=== PATIENT | male | born 1970 | race Caucasian/White ===

== ENCOUNTER 2018-04-15 01:46 | Inpatient (IN) | payer OTHER ==
[~2018-04-15] VITALS: Ht 180.3 cm; Wt 93.4 kg
[~2018-04-15 01:46] MED LIST: ACETAMINOPHEN500 MG PO; ALLEGRA PO; LISINOPRIL10 MG PO; LOSARTAN POTAS100 MG PO; MELOXICAM15 MG PO; NAPROXEN250 MG PO; PANTOPRAZOLE SO40 MG PO; PEPCID20 MG PO; POTASSIUM CITR500 GM PO; SUPHEDRIN 12-H120 MG PO; TYLENOL WITH C1 EACH PO; Z.0.FLOMAX0.4 MG PO; Z.0.LISINOPRIL10 MG PO; Z.0.NORCO 10-325 T1 PO
[2018-04-15] MEDS ORDERED: KETOROLAC TROMETHAMINE 30 MG/ML VIAL IV STA (02:08)
[2018-04-15 02:18] LABS: BASOPHILS % 0.6 % (0.0-1.0); EOSINOPHILS # (AUTO) 0.3 (0.0-0.4); EOSINOPHILS % 4.7 % (0.0-6.0); LYMPHOCYTES # (AUTO) 3.1 (1.0-3.2); LYMPHOCYTES % 49.3 % (18.0-39.1); MEAN CORPUSCULAR HEMOGLOBIN 33.4 pg (28-32); MEAN CORPUSCULAR HGB CONC 35.6 g/dL (31-35); MEAN CORPUSCULAR VOLUME 93.9 fL (81-99); MONOCYTES # (AUTO) 0.3 (0.2-0.8); MONOCYTES % 5.4 % (4.4-11.3); NEUTROPHILS # (AUTO) 2.5 (2.1-6.9); PLATELET COUNT 208 x10e3/uL (140-360); RED BLOOD COUNT 4.79 x10e6/uL (4.3-5.7); RED CELL DISTRIBUTION WIDTH 12.4 % (11.7-14.4)
[2018-04-15 02:23] LABS: BILIRUBIN,URINE NEGATIVE (NEGATIVE); CLARITY,URINE CLOUDY (CLEAR); COLOR,URINE AMBER (YELLOW); KETONES,URINE NEGATIVE (NEGATIVE); LEUKOCYTE ESTERASE ,URINE NEGATIVE (NEGATIVE); NITRITE,URINE NEGATIVE (NEGATIVE); PROTEIN,URINE DIPSTICK 1+ (NEGATIVE); URINE UROBILINOGEN 0.2 mg/dL (0.2 - 1)
[2018-04-15 02:25] LABS: EPITHELIAL CELLS,URINE FEW /LPF; RBC,URINE >50 /HPF (0-5); WBC,URINE (MAN) 0-5 /HPF (0-5)
[2018-04-15] MEDS ORDERED: ACYCLOVIR400 MG PO (02:30)
[2018-04-15 02:37] LABS: ALANINE AMINOTRANSFERASE 39 IU/L (0-55); ALBUMIN 4.4 g/dL (3.5-5.0); ALBUMIN/GLOBULIN RATIO 1.5 (0.8-2.0); ALKALINE PHOSPHATASE 54 IU/L (40-150); ANION GAP 11.9 mmol/L (8-16); BLOOD UREA NITROGEN 15 mg/dL (7-26); BUN/CREATININE RATIO 13 (6-25); CALCIUM 9.8 mg/dL (8.4-10.2); CARBON DIOXIDE 27 mmol/L (22-29); CHLORIDE 108 mmol/L (98-107); CREATININE, SERUM 1.17 mg/dL (0.72-1.25); EST GLOMERULAR FILTRATION RATE > 60 ML/MIN (60-); GLUCOSE 100 mg/dL (74-118); POTASSIUM 3.9 mmol/L (3.5-5.1); SODIUM 143 mmol/L (136-145)
[2018-04-15] MEDS ORDERED: HYDROMORPHONE 1MG/1ML INJ IV STA (02:48)
[2018-04-15] MEDS ORDERED: ONDANSETRON HCL INJ 2 MG/ML VIAL IV STA (02:48)
--- NOTE | 2018-04-15 02:56 | Diagnostic Imaging Report ---
EXAM: CT ABDOMEN/PELVIS WO DATE: 04/15/2018 2:08 AM INDICATION: Left flank pain, stone COMPARISON: 04/01/2017, 05/07/2017 TECHNIQUE: The abdomen and pelvis were scanned using a multidetector helical scanner. Coronal and sagittal reformations were obtained. Routine protocol performed. IV Contrast: 0 ml Isovue 300/370 FINDINGS: Lack of IV contrast decreases sensitivity in evaluating abdominal and pelvic organs. LOWER THORAX: No consolidations LIVER/BILIARY: Hepatic steatosis with pericholecystic sparing. No ductal dilatation. GALLBLADDER: Unremarkable SPLEEN: Unremarkable PANCREAS: Unremarkable ADRENALS: No nodules KIDNEYS: Left kidney: Mild left hydronephrosis related to a 9 mm UPJ stone with associated periureteral inflammatory changes. Nonobstructing 3 mm left superior renal calculus. Stable hyperdense (HU 55) 9 mm left superior renal lesion from 2011, likely hemorrhagic/proteinaceous cyst. Right kidney: Nonobstructing 2 mm right superior renal calculus. 1.5 cm benign-appearing right renal cystic lesion. No hydronephrosis. GI TRACT: No wall thickening or evidence of obstruction. Normal appendix. VESSELS: Mild atherosclerotic calcifications PERITONEUM/RETROPERITONEUM: No free air or fluid LYMPH NODES: No lymphadenopathy REPRODUCTIVE ORGANS/BLADDER: Unremarkable. Decompressed bladder. SOFT TISSUES: Unremarkable BONES: No suspicious bone lesions. IMPRESSION: Mild left hydronephrosis related to a 9 mm UPJ stone with associated periureteral inflammatory changes Signed by: Dr Lupe Davies MD on 04/15/2018 2:53 AM
[2018-04-15] MEDS ORDERED: CEFTRIAXONE SOD 1 GM VIAL IV SCH (03:15)
[2018-04-15] MEDS ORDERED: CEFTRIAXONE SOD 1 GM VIAL ONE (03:16)
[2018-04-15] MEDS ORDERED: ONDANSETRON HCL INJ 2 MG/ML VIAL IV PRN (03:30)
[2018-04-15 04:00] VITALS: BP 141/92
[2018-04-15 04:58] VITALS: BP 141/92
[2018-04-15] MEDS: HYDROMORPHONE 1MG/1ML INJ IV PRN ×3 (06:00→16:48)
[2018-04-15 08:26] VITALS: BP 141/92
[2018-04-15] MEDS ORDERED: LISINOPRIL 10 MG TAB PO SCH (09:00)
[2018-04-15] MEDS ORDERED: PANTOPRAZOLE 40 MG 10ML VIAL IV SCH (09:00)
[2018-04-15] MEDS: DEXTROSE 5%/0.45% SOD CHL 1,000 ML IV SCH ×2 (10:23→19:15)
--- NOTE | 2018-04-15 10:33 | Consultation ---
DATE OF CONSULTATION: April 15, 2018 REASON FOR CONSULTATION: Left flank pain with nausea and vomiting. HISTORY: A 47-year-old male well known to me. Last time seen in my office was November of 2016. He has failed to return to my office for his stone followup. We have done 24-hour urine collections in the past, and have noticed that the patient's calcium has been elevated. His salt had been very high, and his urine output has been low. He had been counseled regarding this and making dietary changes. The patient stated that over the last 2 months he has had intermittent pain on the left flank and left abdomen, the upper abdomen in particular. The patient states that over the last 48 hours he has an increased pain with back pain going to the front as a stabbing pain. He has not seen any blood in the urine. CT scan reveals mild to moderate hydronephrosis with some perinephric stranding, and a 3-4 mm stone in the upper pole of the left kidney and approximately 9 mm to 1-cm stone at the UPJ with swelling, which pretty much is severe swelling around the UPJ on CT. He does have some phlebolith in the pelvis, but no evidence of any other stones, masses or cyst on either kidney. PAST MEDICAL HISTORY: Kidney stone. SOCIAL HISTORY: He is . He is sexually active. Has had children. IMPRESSION: Kidney stone, left-sided. RECOMMENDATIONS: The patient has had on previous studies several years ago narrowing of the proximal ureter due to previous stone formation and instrumentation. We have discussed this issue, and discussed the problem with the left proximal ureter. At this time, the patient has a left UPJ stone. Perhaps, the swelling is related to the narrowing of the ureter. The patient needs to have a stent. We will proceed on with arrangements to put in a stent at this time. Discussed perhaps a ureteroscopy if it can be done today. I doubt very much that we could do that because of his history of narrowing of the ureter. We will have to dilate it over a stent for a few days before attempting to treat the stone. Discussed this with the and the patient. Will arrange for a double J placement. After that, the patient may go home. Job#: [id number] CA
[2018-04-15] MEDS: KETOROLAC TROMETHAMINE 30 MG/ML VIAL IV PRN ×2 (12:39→20:15)
[2018-04-15 15:16] VITALS: BP 108/68
[2018-04-15] MEDS ORDERED: BELLADONNA/OPIUM 30 MG SUPP RC ONE (16:45)
[2018-04-15] MEDS ORDERED: IOPAMIDOL 300MG/ML 50ML INFUS..BTL IV ONE (16:45)
[2018-04-15] MEDS ORDERED: SEVOFLURANE INHAL SOLN 250 ML PEN BTL ONE (17:59)
[2018-04-15] MEDS ORDERED: GLYCOPYRROLATE INJ 1MG/ 5 ML SYR ONE (17:59)
[2018-04-15] MEDS ORDERED: PROPOFOL IV EMULSION 10 MG/ML 20 ML VIAL ONE (17:59)
[2018-04-15] MEDS ORDERED: LIDOCAINE HCL 2% LOCAL INJ 5 ML SDV VIAL INJ ONE (17:59)
[2018-04-15] MEDS ORDERED: DEXAMETHASONE SOD PHOS INJ 4 MG/ML VIAL ONE (17:59)
[2018-04-15] MEDS ORDERED: EPHEDRINE SULFATE INJ 50 MG/10 ML SYR ONE (17:59)
[2018-04-15] MEDS ORDERED: ONDANSETRON HCL INJ 2 MG/ML VIAL ONE (17:59)
[2018-04-15] MEDS ORDERED: FENTANYL CITRATE/PF 100MCG/2 ML INJ ONE (18:35)
[2018-04-15] MEDS ORDERED: MIDAZOLAM HCL 2 MG/2 ML VIAL ONE (18:35)
[2018-04-15] MEDS ORDERED: VALTREX500 MG PO (20:03)
[2018-04-15] MEDS ORDERED: ULTRAM 50MG50 MG PO (20:04)
[2018-04-15] MEDS ORDERED: MACROBID 100 M100 MG PO (20:04)
[2018-04-15 20:12] VITALS: BP 137/82
--- NOTE | 2018-04-15 20:28 | Operative Report ---
DATE OF PROCEDURE: April 15, 2018 PREOPERATIVE DIAGNOSIS: Right renal calculi. POSTOPERATIVE DIAGNOSIS: Right renal calculi. OPERATION PERFORMED: 1. Cystoscopy. 2. Retrograde pyelograms. 3. Urethral biopsy and placement of left double J with stone manipulation. ANESTHESIA: Staff anesthesia. General. FINDINGS: The patient had a lesion in the distal urethra which was biopsied with a cup biopsy and sent in for pathological specimen. Prostate showed middle bar growing but no intravesical component, grade 1 trabeculation of the bladder. No efflux out of the left side. Retrograde pyelogram showed a stone at the UPJ. This was manipulated up into the kidney. Double J was placed in. Double J size 7-Central African, 26 cm long, Olympus. PROCEDURE: With the patient under satisfactory general anesthesia, the patient was placed in the supine position on the operating table. Legs were placed on stirrups. Genitalia was then prepped with Betadine soap and solution and draped in usual manner. A 22-Central African cystoscope was passed per urethra and immediately lesion was identified in the distal urethra. Cup biopsy forceps was used to remove this lesion which was sent in for pathological specimen. This was perhaps 2 to 3 mm in diameter. After that the scope was then passed all the way up into the bladder. Once in the bladder, retrograde pyelogram was done by injecting contrast media retrograde up a number 8 cone-tipped ureteral catheter. Filling defects were noted in the UPJ. This was poorly visualized in the plain film. Once that was done then the guidewire was introduced. Floppy tip in first. Once that was done, the guidewire did not go up into the kidney. Therefore, an open-ended catheter was passed over the guidewire and we manipulated the stone until the stone popped off into the lower pole collecting system. At this point, the guidewire was introduced all the way up to the kidney. A 24-Central African double J was then introduced that turned out to be somewhat short. Therefore, it was removed and replaced with a 26 cm long 7-Central African double J. With a pusher it was manipulated up into the renal pelvis and once that was done the string was cut off, the guidewire was removed. Double J was J in the bladder. Cystoscopy was performed to make sure the double J was in the appropriate position and I pulled it out approximately 4 to 5 mm with the grasping forceps to be able to push it up in there. Once that was done, then the double J was left in place. Patient was then taken to recovery room in satisfactory condition. I discussed with the patient's the placement of double J. I had attempted to do a ureteroscopy by placing a ureteral access sheath. The patient had narrowing of the ureter and that did not advance, so that is the reason to put a #7 double J to see if the ureter could be dilated somewhat to be able to pass a flexible ureteroscope on a 2nd time look. I will prescribe tramadol for the patient as well as Macrobid and we will see him again within 2-3 weeks in the office and determine when he is going to come back for further treatment. Job#: [id number] PATRIC
== END 2018-04-15 21:33 | disposition home or self-care (01) | DRG 669 ==
LOC: ER 01:46 → ERHOLD 03:24 → IMCU 04:52
PROC: 0TBD8ZX Excision of Urethra, Via Natural or Artificial Opening Endoscopic, Diagnostic (ICD-10-PCS; 2018-04-15)
PROC: BT1F1ZZ Fluoroscopy of Left Kidney, Ureter and Bladder using Low Osmolar Contrast (ICD-10-PCS; 2018-04-15)
PROC: 0T778DZ Dilation of Left Ureter with Intraluminal Device, Via Natural or Artificial Opening Endoscopic (ICD-10-PCS; 2018-04-15)
PROC: 0TC48ZZ Extirpation of Matter from Left Kidney Pelvis, Via Natural or Artificial Opening Endoscopic (ICD-10-PCS; principal; 2018-04-15 17:30)
DX: N13.2 Hydronephrosis with renal and ureteral calculous obstruction (principal); N20.1 Calculus of ureter; Z87.442 Personal history of urinary calculi; N36.2 Urethral caruncle; R31.9 Hematuria, unspecified
CPT/HCPCS: 36415; 74176; 74420; 80053; 81001; 85025; 88305; 96374; 96375; 99284; C2617; J0696; J1100; J1170; J1885; J2001; J2250; J2405

== ENCOUNTER → 2021-11-23 | Outpatient (CLI) | payer OTHER ==
[~2021-11-23] MED LIST changes: +ACYCLOVIR400 MG PO; +MACROBID 100 M100 MG PO; +ULTRAM 50MG50 MG PO; +VALTREX500 MG PO
== END ==
LOC: US 07:26
PROVIDERS: ATTEND Family Medicine
DX: R74.8 Abnormal levels of other serum enzymes (principal)
CPT/HCPCS: 76705

== ENCOUNTER 2024-03-22 08:11 | Inpatient (IN) | payer OTHER ==
[~2024-03-22] VITALS: Ht 180.3 cm; Wt 93.4 kg
[2024-03-22] VITALS (9 sets, daily range): BP systolic 116–145; BP diastolic 71–78; PULSE 72–92; RESP 16–22; TEMP 97.6–98.9; O2SAT 97–98
[2024-03-22] MEDS: ONDANSETRON HCL INJ 2MG/ML 2ML 2 MG/ML VIAL IV STA (09:09)
[2024-03-22] MEDS: KETOROLAC TROMETHAMINE 30 MG/ML VIAL IV STA (09:09)
[2024-03-22 09:19] LABS: BASOPHILS % 0.6 % (0.0-1.0); EOSINOPHILS # (AUTO) 0.2 (0.0-0.4); EOSINOPHILS % 3.2 % (0.0-6.0); HEMOGLOBIN 16.3 g/dL (14.0-18.0); LYMPHOCYTES # (AUTO) 1.5 (1.0-3.2); LYMPHOCYTES % 22.1 % (18.0-39.1); MEAN CORPUSCULAR HEMOGLOBIN 33.3 pg (28-32); MEAN CORPUSCULAR HGB CONC 35.4 g/dL (31-35); MEAN CORPUSCULAR VOLUME 93.9 fL (81-99); MONOCYTES # (AUTO) 0.4 (0.2-0.8); MONOCYTES % 5.3 % (4.4-11.3); NEUTROPHILS # (AUTO) 4.5 (2.1-6.9); NEUTROPHILS % 68.5 % (38.7-80.0); PLATELET COUNT 255 x10e3/uL (140-360); RED CELL DISTRIBUTION WIDTH 12.1 % (11.7-14.4); WHITE BLOOD COUNT 6.57 x10e3/uL (4.8-10.8)
[2024-03-22 09:33] LABS: ALBUMIN 4.2 g/dL (3.5-5.0); ANION GAP 15.8 mmol/L (8-16); BILIRUBIN,TOTAL 0.8 mg/dL (0.2-1.2); CALCIUM 10.1 mg/dL (8.4-10.2); CREATININE, SERUM 1.12 mg/dL (0.72-1.25); POTASSIUM 3.8 mmol/L (3.5-5.1); TOTAL PROTEIN 8.5 g/dL (6.5-8.1)
[2024-03-22 09:44] LABS: CLARITY,URINE CLOUDY (CLEAR); COLOR,URINE YELLOW (YELLOW)
[2024-03-22 09:45] LABS: BACTERIA,URINE FEW /HPF; BILIRUBIN,URINE NEGATIVE (NEGATIVE); EPITHELIAL CELLS,URINE FEW /LPF; GLUCOSE, URINE 1+ (NEGATIVE); KETONES,URINE NEGATIVE (NEGATIVE); LEUKOCYTE ESTERASE ,URINE TRACE (NEGATIVE); NITRITE,URINE POSITIVE (NEGATIVE); PH,URINE 6 (5 - 7); PROTEIN,URINE DIPSTICK 2+ (NEGATIVE); RBC,URINE >50 /HPF (0-5); URINE UROBILINOGEN 1 mg/dL (0.2 - 1)
[2024-03-22] MEDS ORDERED: ONDANSETRON HCL INJ 2MG/ML 2ML 2 MG/ML VIAL IV PRN (12:00)
[2024-03-22] MEDS: SODIUM CHLORIDE 0.9% 1000ML 1,000 ML IV SCH (13:03)
[2024-03-22] MEDS: KETOROLAC TROMETHAMINE 30 MG/ML VIAL IV PRN (13:03)
[2024-03-22] MEDS: MEROPENEM 1 GM in SODIUM CHLORIDE 0.9% 100 ML IV SCH (13:04)
[2024-03-22] MEDS: Morphine 4mg INJECTION 4 MG/ML INJ IV PRN (14:51)
[2024-03-22] MEDS: POLYETHYLENE GLYCOL 3350 17 GM PACK PO SCH (21:15)
[2024-03-23] VITALS (10 sets, daily range): BP systolic 133–160; BP diastolic 71–98; PULSE 64–102; RESP 18–20; TEMP 97.6–98.4; O2SAT 95–99
[2024-03-23 05:56] LABS: BASOPHILS % 0.4 % (0.0-1.0); EOSINOPHILS # (AUTO) 0.3 (0.0-0.4); EOSINOPHILS % 4.2 % (0.0-6.0); HEMATOCRIT 39.2 % (38.2-49.6); HEMOGLOBIN 13.4 g/dL (14.0-18.0); LYMPHOCYTES # (AUTO) 1.9 (1.0-3.2); LYMPHOCYTES % 26.6 % (18.0-39.1); MEAN CORPUSCULAR HEMOGLOBIN 33.3 pg (28-32); MEAN CORPUSCULAR HGB CONC 34.2 g/dL (31-35); MEAN CORPUSCULAR VOLUME 97.3 fL (81-99); MONOCYTES # (AUTO) 0.6 (0.2-0.8); MONOCYTES % 8.2 % (4.4-11.3); NEUTROPHILS # (AUTO) 4.3 (2.1-6.9); NEUTROPHILS % 60.3 % (38.7-80.0); PLATELET COUNT 200 x10e3/uL (140-360); RED BLOOD COUNT 4.03 x10e6/uL (4.3-5.7); RED CELL DISTRIBUTION WIDTH 12.1 % (11.7-14.4); WHITE BLOOD COUNT 7.06 x10e3/uL (4.8-10.8)
[2024-03-23 06:14] LABS: ALBUMIN 3.4 g/dL (3.5-5.0); ALBUMIN/GLOBULIN RATIO 1.1 (0.8-2.0); ANION GAP 12.2 mmol/L (8-16); BILIRUBIN,TOTAL 0.7 mg/dL (0.2-1.2); CALCIUM 9.1 mg/dL (8.4-10.2); CREATININE, SERUM 1.22 mg/dL (0.72-1.25); POTASSIUM 4.2 mmol/L (3.5-5.1); TOTAL PROTEIN 6.5 g/dL (6.5-8.1)
[2024-03-23] MEDS ORDERED: IOPAMIDOL 610MG/1ML 300 MG/ML VIAL IV ONE (10:20)
[2024-03-23] MEDS: HYDRALAZINE HCL 20 MG/ML VIAL ONE (12:46)
[2024-03-23] MEDS: FENTANYL CITRATE/PF 100MCG/2 ML INJ ONE (13:05)
[2024-03-23] MEDS ORDERED: LIDOCAINE HCL 2% LOCAL INJ 5 ML SDV VIAL INJ ONE (13:08)
[2024-03-23] MEDS ORDERED: DEXAMETHASONE SOD PHOS INJ 4 MG/ML SDV ONE (13:08)
[2024-03-23] MEDS ORDERED: SEVOFLURANE INHAL SOLN 250 ML PEN BTL ONE (13:08)
[2024-03-23] MEDS ORDERED: KETOROLAC TROMETHAMINE 30 MG/ML VIAL ONE (13:08)
[2024-03-23] MEDS ORDERED: PROPOFOL IV EMULSION 10 MG/ML 20 ML VIAL ONE (13:08)
[2024-03-23] MEDS ORDERED: ONDANSETRON HCL INJ 2MG/ML 2ML 2 MG/ML VIAL ONE (13:08)
[2024-03-23] MEDS ORDERED: FENTANYL CITRATE/PF 100MCG/2 ML INJ ONE (13:21)
[2024-03-23] MEDS ORDERED: FLOMAX0.4 MG PO (13:51)
[2024-03-23] MEDS: PANTOPRAZOLE SOD 40 MG TABEC PO SCH (15:22)
[2024-03-23] MEDS: LISINOPRIL 10 MG TAB PO ONE (15:22)
[2024-03-23] MEDS: POLYETHYLENE GLYCOL 3350 17 GM PACK PO SCH (20:40)
[2024-03-23] MEDS: TAMSULOSIN HCL 0.4 MG CAP PO SCH (20:40)
[2024-03-24] VITALS (8 sets, daily range): BP systolic 117–188; BP diastolic 60–99; PULSE 91–110; RESP 17–21; TEMP 97.4–98.9; O2SAT 95–100
[2024-03-24] MEDS ORDERED: PANTOPRAZOLE SOD 40 MG TABEC PO SCH (07:30)
[2024-03-24 07:40] LABS: BASOPHILS % 0.1 % (0.0-1.0); EOSINOPHILS % 0.1 % (0.0-6.0); HEMATOCRIT 39.9 % (38.2-49.6); HEMOGLOBIN 13.4 g/dL (14.0-18.0); LYMPHOCYTES # (AUTO) 0.8 (1.0-3.2); LYMPHOCYTES % 6.7 % (18.0-39.1); MEAN CORPUSCULAR HEMOGLOBIN 32.6 pg (28-32); MEAN CORPUSCULAR HGB CONC 33.6 g/dL (31-35); MEAN CORPUSCULAR VOLUME 97.1 fL (81-99); MONOCYTES # (AUTO) 0.5 (0.2-0.8); MONOCYTES % 3.9 % (4.4-11.3); NEUTROPHILS # (AUTO) 10.3 (2.1-6.9); NEUTROPHILS % 88.7 % (38.7-80.0); PLATELET COUNT 223 x10e3/uL (140-360); RED BLOOD COUNT 4.11 x10e6/uL (4.3-5.7); RED CELL DISTRIBUTION WIDTH 12.3 % (11.7-14.4); WHITE BLOOD COUNT 11.65 x10e3/uL (4.8-10.8)
[2024-03-24 07:59] LABS: ANION GAP 13.6 mmol/L (8-16); CALCIUM 9.3 mg/dL (8.4-10.2); CREATININE, SERUM 0.98 mg/dL (0.72-1.25); POTASSIUM 4.6 mmol/L (3.5-5.1)
[2024-03-24] MEDS: LISINOPRIL 10 MG TAB PO SCH (08:55)
[2024-03-24] MEDS ORDERED: LEVOFLOXACIN500 MG PO (09:51)
[2024-03-24] MEDS ORDERED: ONDANSETRON HCL 4 MG ORAL DISINTEGRATING TAB PO PRN (10:15)
[2024-03-25 02:09] LABS: CALCIUM 8.9 mg/dL (8.7-10.2)
== END 2024-03-24 12:32 | disposition home or self-care (01) | DRG 661 ==
LOC: ER 08:19 → ERHOLD 11:56 → MED/SURG2 14:00 → OBSVTOIN 03-23 10:17
PROVIDERS: ADMIT Internal Medicine; ATTEND Internal Medicine
PROC: 0TF68ZZ Fragmentation in Right Ureter, Via Natural or Artificial Opening Endoscopic (ICD-10-PCS; 2024-03-23)
PROC: BT161ZZ Fluoroscopy of Right Ureter using Low Osmolar Contrast (ICD-10-PCS; 2024-03-23)
PROC: 0TP98DZ Removal of Intraluminal Device from Ureter, Via Natural or Artificial Opening Endoscopic (ICD-10-PCS; principal; 2024-03-23 11:56)
PROC: 0T768DZ Dilation of Right Ureter with Intraluminal Device, Via Natural or Artificial Opening Endoscopic (ICD-10-PCS; 2024-03-23 11:56)
DX: N13.6 Pyonephrosis (principal); R31.9 Hematuria, unspecified; I10 Essential (primary) hypertension; K21.9 Gastro-esophageal reflux disease without esophagitis; E66.3 Overweight; Z68.28 Body mass index [BMI] 28.0-28.9, adult; Z11.52 Encounter for screening for COVID-19; Z79.899 Other long term (current) drug therapy; Z96.0 Presence of urogenital implants; Z88.2 Allergy status to sulfonamides; Z88.1 Allergy status to other antibiotic agents; Z87.891 Personal history of nicotine dependence; Z87.442 Personal history of urinary calculi
CPT/HCPCS: 36415; 74176; 74420; 80048; 80053; 81001; 83970; 84550; 85025; 87086; 88300; 94799; 99284; C1769; C2617; G0378; J0360; J1100; J1885; J2001; J2185; J2270; J2405; J7030; J7050; U0002

== ENCOUNTER 2024-04-12 04:29 | Inpatient (IN) | payer OTHER ==
[~2024-04-12] VITALS: Ht 182.9 cm; Wt 112.0 kg
[2024-04-12] VITALS (11 sets, daily range): BP systolic 104–155; BP diastolic 61–94; PULSE 58–85; RESP 15–20; TEMP 97.7–98.5; O2SAT 96–98
[~2024-04-12 04:29] MED LIST changes: +FLOMAX0.4 MG PO; +LEVOFLOXACIN500 MG PO
[2024-04-12 05:01] LABS: BASOPHILS # (AUTO) 0.1 (0.0-0.1); BASOPHILS % 0.7 % (0.0-1.0); EOSINOPHILS # (AUTO) 0.4 (0.0-0.4); EOSINOPHILS % 5.2 % (0.0-6.0); HEMATOCRIT 45.5 % (38.2-49.6); HEMOGLOBIN 15.4 g/dL (14.0-18.0); LYMPHOCYTES # (AUTO) 2.7 (1.0-3.2); LYMPHOCYTES % 36.9 % (18.0-39.1); MEAN CORPUSCULAR HGB CONC 33.8 g/dL (31-35); MEAN CORPUSCULAR VOLUME 94.6 fL (81-99); MONOCYTES # (AUTO) 0.5 (0.2-0.8); MONOCYTES % 6.2 % (4.4-11.3); NEUTROPHILS # (AUTO) 3.7 (2.1-6.9); NEUTROPHILS % 50.9 % (38.7-80.0); PLATELET COUNT 230 x10e3/uL (140-360); RED BLOOD COUNT 4.81 x10e6/uL (4.3-5.7); RED CELL DISTRIBUTION WIDTH 11.7 % (11.7-14.4); WHITE BLOOD COUNT 7.31 x10e3/uL (4.8-10.8)
[2024-04-12 05:14] LABS: CLARITY,URINE HAZY (CLEAR); COLOR,URINE ORANGE (YELLOW); GLUCOSE, URINE 1+ (NEGATIVE); KETONES,URINE TRACE (NEGATIVE); LEUKOCYTE ESTERASE ,URINE LARGE (NEGATIVE); NITRITE,URINE POSITIVE (NEGATIVE); PH,URINE 5 (5 - 7); PROTEIN,URINE DIPSTICK >=300 (NEGATIVE)
[2024-04-12 05:15] LABS: BACTERIA,URINE MANY /HPF; BILIRUBIN,URINE SMALL (NEGATIVE); RBC,URINE >50 /HPF (0-5)
[2024-04-12] MEDS: KETOROLAC TROMETHAMINE 30 MG/ML VIAL IV STA (05:20)
[2024-04-12 05:21] LABS: ALBUMIN 4.3 g/dL (3.5-5.0); ALBUMIN/GLOBULIN RATIO 1.3 (0.8-2.0); ANION GAP 14.3 mmol/L (8-16); BILIRUBIN,TOTAL 0.7 mg/dL (0.2-1.2); CREATININE, SERUM 1.3 mg/dL (0.72-1.25); POTASSIUM 4.3 mmol/L (3.5-5.1); TOTAL PROTEIN 7.6 g/dL (6.5-8.1)
[2024-04-12 05:31] LABS: CALCIUM 11.6 mg/dL (8.4-10.2)
[2024-04-12] MEDS: ONDANSETRON HCL INJ 2MG/ML 2ML 2 MG/ML VIAL IV STA (05:44)
[2024-04-12] MEDS: Morphine 4mg INJECTION 4 MG/ML INJ IV ONE (05:44)
[2024-04-12] MEDS ORDERED: SODIUM CHLORIDE FLUSH 10 ML SYR INJ PRN (07:00)
[2024-04-12] MEDS: ONDANSETRON HCL INJ 2MG/ML 2ML 2 MG/ML VIAL IV PRN (09:19)
[2024-04-12] MEDS: Morphine 4mg INJECTION 4 MG/ML INJ IV PRN (09:19)
[2024-04-12] MEDS ORDERED: VESICARE5 MG PO (09:28)
[2024-04-12] MEDS ORDERED: HYDRALAZINE HCL 20 MG/ML VIAL IV PRN (10:30)
[2024-04-12] MEDS: LISINOPRIL 10 MG TAB PO SCH (11:00)
[2024-04-12] MEDS: SODIUM CHLORIDE 0.9% 1000ML 1,000 ML IV SCH (13:01)
[2024-04-12] MEDS: MEROPENEM 1 GM in SODIUM CHLORIDE 0.9% 100 ML IV SCH (13:01)
[2024-04-12] MEDS: TAMSULOSIN HCL 0.4 MG CAP PO SCH (17:20)
[2024-04-12] MEDS: ACETAMINOPHEN 325 MG TAB PO PRN (20:25)
[2024-04-12] MEDS: MELATONIN 3 MG TAB PO SCH (20:25)
[2024-04-13] VITALS (7 sets, daily range): BP systolic 103–141; BP diastolic 67–75; PULSE 72–91; RESP 17–20; TEMP 97.3–99.1; O2SAT 96–100
[2024-04-13 05:29] LABS: BASOPHILS # (AUTO) 0.1 (0.0-0.1); BASOPHILS % 0.8 % (0.0-1.0); EOSINOPHILS # (AUTO) 0.3 (0.0-0.4); EOSINOPHILS % 4.7 % (0.0-6.0); HEMATOCRIT 39.2 % (38.2-49.6); LYMPHOCYTES # (AUTO) 1.9 (1.0-3.2); LYMPHOCYTES % 30.1 % (18.0-39.1); MEAN CORPUSCULAR HEMOGLOBIN 32.6 pg (28-32); MEAN CORPUSCULAR HGB CONC 33.2 g/dL (31-35); MEAN CORPUSCULAR VOLUME 98.2 fL (81-99); MONOCYTES # (AUTO) 0.5 (0.2-0.8); MONOCYTES % 8.5 % (4.4-11.3); NEUTROPHILS # (AUTO) 3.6 (2.1-6.9); NEUTROPHILS % 55.7 % (38.7-80.0); PLATELET COUNT 193 x10e3/uL (140-360); RED BLOOD COUNT 3.99 x10e6/uL (4.3-5.7); RED CELL DISTRIBUTION WIDTH 11.7 % (11.7-14.4); WHITE BLOOD COUNT 6.37 x10e3/uL (4.8-10.8)
[2024-04-13 05:46] LABS: INR 0.97; PROTHROMBIN TIME 13.6 seconds (11.9-14.5)
[2024-04-13 05:47] LABS: PARTIAL THROMBOPLASTIN TIME 27.8 seconds (23.8-35.5)
[2024-04-13 05:56] LABS: ALBUMIN 3.5 g/dL (3.5-5.0); ALBUMIN/GLOBULIN RATIO 1.3 (0.8-2.0); ANION GAP 12.6 mmol/L (8-16); BILIRUBIN,TOTAL 0.7 mg/dL (0.2-1.2); CALCIUM 9.1 mg/dL (8.4-10.2); CREATININE, SERUM 1.41 mg/dL (0.72-1.25); POTASSIUM 4.6 mmol/L (3.5-5.1); TOTAL PROTEIN 6.2 g/dL (6.5-8.1)
[2024-04-13] MEDS: PANTOPRAZOLE SOD 40 MG TABEC PO SCH (09:05)
[2024-04-13] MEDS: SOLIFENACIN SUCCINATE 5 MG TAB PO SCH (09:06)
[2024-04-13] MEDS: SENNOSIDES 8.6 MG TAB PO SCH (09:06)
[2024-04-14] VITALS (8 sets, daily range): BP systolic 92–179; BP diastolic 65–81; PULSE 18–109; RESP 16–18; TEMP 98.2–98.9; O2SAT 94–100
[2024-04-14 05:13] LABS: BASOPHILS # (AUTO) 0.1 (0.0-0.1); BASOPHILS % 0.9 % (0.0-1.0); EOSINOPHILS # (AUTO) 0.3 (0.0-0.4); EOSINOPHILS % 5.4 % (0.0-6.0); HEMATOCRIT 36.8 % (38.2-49.6); LYMPHOCYTES # (AUTO) 1.9 (1.0-3.2); LYMPHOCYTES % 33.7 % (18.0-39.1); MEAN CORPUSCULAR HEMOGLOBIN 32.2 pg (28-32); MEAN CORPUSCULAR HGB CONC 32.6 g/dL (31-35); MEAN CORPUSCULAR VOLUME 98.7 fL (81-99); MONOCYTES # (AUTO) 0.5 (0.2-0.8); MONOCYTES % 8.1 % (4.4-11.3); NEUTROPHILS % 51.7 % (38.7-80.0); PLATELET COUNT 176 x10e3/uL (140-360); RED BLOOD COUNT 3.73 x10e6/uL (4.3-5.7); RED CELL DISTRIBUTION WIDTH 11.7 % (11.7-14.4)
[2024-04-14 05:37] LABS: ALBUMIN 3.4 g/dL (3.5-5.0); ALBUMIN/GLOBULIN RATIO 1.4 (0.8-2.0); ANION GAP 11.9 mmol/L (8-16); BILIRUBIN,TOTAL 0.4 mg/dL (0.2-1.2); CALCIUM 8.8 mg/dL (8.4-10.2); CREATININE, SERUM 1.31 mg/dL (0.72-1.25); POTASSIUM 3.9 mmol/L (3.5-5.1); TOTAL PROTEIN 5.9 g/dL (6.5-8.1)
[2024-04-14] MEDS ORDERED: IOPAMIDOL 610MG/1ML 300 MG/ML VIAL IV ONE (07:25)
[2024-04-14] MEDS: FENTANYL CITRATE/PF 100MCG/2 ML INJ ONE (08:30)
[2024-04-14] MEDS: HYDRALAZINE HCL 20 MG/ML VIAL ONE (08:35)
[2024-04-14] MEDS: HYDROMORPHONE 1MG/1ML INJ ONE (08:50)
[2024-04-14] MEDS: Morphine 4mg INJECTION 4 MG/ML INJ ONE (09:20)
[2024-04-14] MEDS: LABETALOL HCL 20 ML ONE (09:57)
[2024-04-14] MEDS: HYDROMORPHONE 1MG/1ML INJ IV ONE (10:10)
[2024-04-14] MEDS: ACETAMINOPHEN 1000 MG/100 ML IV PRN (10:11)
[2024-04-14] MEDS: KETOROLAC TROMETHAMINE 60 MG/2 ML VIAL IM ONE (10:12)
[2024-04-14] MEDS: PHENAZOPYRIDINE HCL 100 MG TAB PO PRN (10:12)
[2024-04-14] MEDS ORDERED: LIDOCAINE HCL 2% LOCAL INJ 5 ML SDV VIAL INJ ONE (12:32)
[2024-04-14] MEDS ORDERED: PROPOFOL IV EMULSION 10 MG/ML 20 ML VIAL ONE (12:32)
[2024-04-14] MEDS ORDERED: DEXMEDETOMIDINE HCL 200 MCG/2 ML VIAL ONE (12:32)
[2024-04-14] MEDS ORDERED: DEXAMETHASONE SOD PHOS INJ 4 MG/ML SDV ONE (12:32)
[2024-04-14] MEDS ORDERED: SODIUM CHLORIDE 0.9% INJ 100 ML BAG ONE (12:32)
[2024-04-14] MEDS ORDERED: SEVOFLURANE INHAL SOLN 250 ML PEN BTL ONE (12:32)
[2024-04-14] MEDS ORDERED: ONDANSETRON HCL INJ 2MG/ML 2ML 2 MG/ML VIAL ONE (12:32)
[2024-04-14] MEDS: PANTOPRAZOLE SOD 40 MG TABEC PO SCH (12:39)
[2024-04-14] MEDS: POLYETHYLENE GLYCOL 3350 17 GM PACK PO PRN (12:39)
[2024-04-14] MEDS ORDERED: FENTANYL CITRATE/PF 100MCG/2 ML INJ ONE (17:41)
[2024-04-15] VITALS (7 sets, daily range): BP systolic 105–133; BP diastolic 60–78; PULSE 77–94; RESP 17–20; TEMP 98.2–100; O2SAT 96–100
[2024-04-15 05:22] LABS: BASOPHILS % 0.2 % (0.0-1.0); EOSINOPHILS % 0.1 % (0.0-6.0); HEMATOCRIT 36.6 % (38.2-49.6); HEMOGLOBIN 12.1 g/dL (14.0-18.0); LYMPHOCYTES # (AUTO) 0.8 (1.0-3.2); LYMPHOCYTES % 6.2 % (18.0-39.1); MEAN CORPUSCULAR HEMOGLOBIN 32.4 pg (28-32); MEAN CORPUSCULAR HGB CONC 33.1 g/dL (31-35); MEAN CORPUSCULAR VOLUME 98.1 fL (81-99); MONOCYTES # (AUTO) 0.4 (0.2-0.8); MONOCYTES % 3.4 % (4.4-11.3); NEUTROPHILS # (AUTO) 10.9 (2.1-6.9); NEUTROPHILS % 89.5 % (38.7-80.0); PLATELET COUNT 185 x10e3/uL (140-360); RED BLOOD COUNT 3.73 x10e6/uL (4.3-5.7); RED CELL DISTRIBUTION WIDTH 11.9 % (11.7-14.4); WHITE BLOOD COUNT 12.11 x10e3/uL (4.8-10.8)
[2024-04-15 05:41] LABS: ANION GAP 13.6 mmol/L (8-16); CALCIUM 8.8 mg/dL (8.4-10.2); CREATININE, SERUM 1.22 mg/dL (0.72-1.25); POTASSIUM 4.6 mmol/L (3.5-5.1)
[2024-04-15] MEDS: ACETAMINOPHEN/CODEINE 300MG - 30MG TAB PO PRN (09:44)
[2024-04-15] MEDS: BISACODYL 10 MG SUPP PR ONE (11:27)
[2024-04-15] MEDS: SOD PHOSPHATE/SOD BIPHOSPHATE ENEMA 132 ML BTL PR ONE (18:31)
[2024-04-16] VITALS: BP 137/83; PULSE 80; RESP 18; TEMP 98.2; O2SAT 96
[2024-04-16 05:52] VITALS: BP 129/79; PULSE 80; RESP 19; TEMP 98.4; O2SAT 98
[2024-04-16 08:14] VITALS: BP 151/112; PULSE 79; RESP 18; TEMP 98.3; O2SAT 98
[2024-04-16] MEDS: HYDROCODONE/APAP 7.5MG-325MG 1 EA TAB PO PRN (08:34)
[2024-04-16 11:56] VITALS: BP 139/91; PULSE 72; RESP 17; TEMP 98.3; O2SAT 97
[2024-04-16 16:31] VITALS: BP 124/75; PULSE 76; RESP 17; TEMP 98.2; O2SAT 97
[2024-04-16] MEDS ORDERED: HYDROCODON-ACE1 EA12 PO (17:21)
[2024-04-16] MEDS ORDERED: PYRIDIUM100 MG PO (17:21)
[2024-04-16] MEDS ORDERED: VESICARE5 MG PO (17:21)
== END 2024-04-16 18:09 | disposition home or self-care (01) | DRG 660 ==
LOC: ER 04:35 → ERHOLD 06:50 → MED/SURG3 09:09 → OBSVTOIN 10:16
PROVIDERS: ADMIT Internal Medicine; ATTEND Internal Medicine
PROC: 0TP98DZ Removal of Intraluminal Device from Ureter, Via Natural or Artificial Opening Endoscopic (ICD-10-PCS; 2024-04-14)
PROC: 0T9B70Z Drainage of Bladder with Drainage Device, Via Natural or Artificial Opening (ICD-10-PCS; 2024-04-14)
PROC: BT161ZZ Fluoroscopy of Right Ureter using Low Osmolar Contrast (ICD-10-PCS; 2024-04-14)
PROC: BT171ZZ Fluoroscopy of Left Ureter using Low Osmolar Contrast (ICD-10-PCS; 2024-04-14)
PROC: 0T788DZ Dilation of Bilateral Ureters with Intraluminal Device, Via Natural or Artificial Opening Endoscopic (ICD-10-PCS; principal; 2024-04-14 07:26)
PROC: 0T7D8ZZ Dilation of Urethra, Via Natural or Artificial Opening Endoscopic (ICD-10-PCS; 2024-04-14 07:26)
DX: N39.0 Urinary tract infection, site not specified (principal); N17.9 Acute kidney failure, unspecified; N20.1 Calculus of ureter; I10 Essential (primary) hypertension; K21.9 Gastro-esophageal reflux disease without esophagitis; E66.9 Obesity, unspecified; R81 Glycosuria; N23 Unspecified renal colic; R31.9 Hematuria, unspecified; Z68.33 Body mass index [BMI] 33.0-33.9, adult; Z96.0 Presence of urogenital implants; Z87.442 Personal history of urinary calculi; Z88.2 Allergy status to sulfonamides; Z88.1 Allergy status to other antibiotic agents; Z88.8 Allergy status to other drugs, medicaments and biological substances; Z87.891 Personal history of nicotine dependence
CPT/HCPCS: 36415; 74176; 74420; 80048; 80053; 81001; 85025; 85610; 85730; 87086; 99252; 99284; C1758; C1766; C1769; C2617; J0360; J1100; J1170; J1885; J2001; J2185; J2270; J2405; J7030; J7050; U0002

== ENCOUNTER 2024-04-22 13:31 | Inpatient (IN) | payer OTHER ==
[2024-04-22] VITALS (8 sets, daily range): BP systolic 120–122; BP diastolic 80–97; PULSE 75–104; RESP 17–20; TEMP 98–98.9; O2SAT 95–99
[~2024-04-22] VITALS: Ht 180.3 cm; Wt 110.7 kg
[~2024-04-22 13:31] MED LIST changes: +HYDROCODON-ACE1 EA12 PO; +PYRIDIUM100 MG PO; +VESICARE5 MG PO
[2024-04-22 14:55] LABS: INR 0.91; PROTHROMBIN TIME 12.9 seconds (11.9-14.5)
[2024-04-22 14:56] LABS: PARTIAL THROMBOPLASTIN TIME 28.1 seconds (23.8-35.5)
[2024-04-22 14:57] LABS: BASOPHILS % 0.5 % (0.0-1.0); EOSINOPHILS # (AUTO) 0.1 (0.0-0.4); EOSINOPHILS % 1.1 % (0.0-6.0); HEMATOCRIT 45.6 % (38.2-49.6); HEMOGLOBIN 15.5 g/dL (14.0-18.0); LYMPHOCYTES # (AUTO) 0.7 (1.0-3.2); LYMPHOCYTES % 8.6 % (18.0-39.1); MEAN CORPUSCULAR HEMOGLOBIN 31.9 pg (28-32); MEAN CORPUSCULAR VOLUME 93.8 fL (81-99); MONOCYTES # (AUTO) 0.6 (0.2-0.8); MONOCYTES % 7.5 % (4.4-11.3); NEUTROPHILS # (AUTO) 6.2 (2.1-6.9); NEUTROPHILS % 81.9 % (38.7-80.0); PLATELET COUNT 231 x10e3/uL (140-360); RED BLOOD COUNT 4.86 x10e6/uL (4.3-5.7); RED CELL DISTRIBUTION WIDTH 11.8 % (11.7-14.4); WHITE BLOOD COUNT 7.56 x10e3/uL (4.8-10.8)
[2024-04-22] MEDS: SODIUM CHLORIDE 0.9% 1000ML 1,000 ML IV ONE (14:57)
[2024-04-22] MEDS: ONDANSETRON HCL INJ 2MG/ML 2ML 2 MG/ML VIAL IV ONE (14:57)
[2024-04-22] MEDS: LACTATED RINGER'S 1,000 ML INJ ONE (14:57)
[2024-04-22] MEDS: Morphine 4mg INJECTION 4 MG/ML INJ IV STA (14:58)
[2024-04-22] MEDS: KETOROLAC TROMETHAMINE 30 MG/ML VIAL IV ONE (14:58)
[2024-04-22 15:03] LABS: ALBUMIN 4.2 g/dL (3.5-5.0); ALBUMIN/GLOBULIN RATIO 1.1 (0.8-2.0); ANION GAP 15.3 mmol/L (8-16); BILIRUBIN,TOTAL 0.5 mg/dL (0.2-1.2); CALCIUM 10.1 mg/dL (8.4-10.2); CREATININE, SERUM 1.22 mg/dL (0.72-1.25); MAGNESIUM 1.7 MG/DL (1.3-2.1); POTASSIUM 4.3 mmol/L (3.5-5.1)
[2024-04-22 15:16] LABS: CLARITY,URINE HAZY (CLEAR); COLOR,URINE AMBER (YELLOW); GLUCOSE, URINE NEGATIVE (NEGATIVE); KETONES,URINE NEGATIVE (NEGATIVE); LEUKOCYTE ESTERASE ,URINE SMALL (NEGATIVE); NITRITE,URINE NEGATIVE (NEGATIVE); PH,URINE 6 (5 - 7); PROTEIN,URINE DIPSTICK 2+ (NEGATIVE)
[2024-04-22 15:17] LABS: BILIRUBIN,URINE NEGATIVE (NEGATIVE); URINE UROBILINOGEN 0.2 mg/dL (0.2 - 1)
[2024-04-22 15:27] LABS: BACTERIA,URINE FEW /HPF; RBC,URINE >50 /HPF (0-5)
[2024-04-22] MEDS: SODIUM CHLORIDE 0.9% 1000ML 1,000 ML IV SCH (17:52)
[2024-04-22] MEDS: HYDROMORPHONE 1MG/1ML INJ IV ONE (17:53)
[2024-04-22] MEDS: SOLIFENACIN SUCCINATE 5 MG TAB PO SCH (18:19)
[2024-04-22] MEDS: Morphine 4mg INJECTION 4 MG/ML INJ IV PRN (20:09)
[2024-04-22] MEDS: ONDANSETRON HCL INJ 2MG/ML 2ML 2 MG/ML VIAL IV PRN (20:10)
[2024-04-23] VITALS (9 sets, daily range): BP systolic 117–157; BP diastolic 70–101; PULSE 86–101; RESP 16–20; TEMP 98–99.8; O2SAT 96–100
[2024-04-23 05:41] LABS: BASOPHILS % 0.5 % (0.0-1.0); EOSINOPHILS # (AUTO) 0.3 (0.0-0.4); EOSINOPHILS % 4.9 % (0.0-6.0); HEMATOCRIT 39.8 % (38.2-49.6); LYMPHOCYTES # (AUTO) 1.2 (1.0-3.2); LYMPHOCYTES % 21.7 % (18.0-39.1); MEAN CORPUSCULAR HEMOGLOBIN 31.6 pg (28-32); MEAN CORPUSCULAR HGB CONC 32.7 g/dL (31-35); MEAN CORPUSCULAR VOLUME 96.8 fL (81-99); MONOCYTES # (AUTO) 0.5 (0.2-0.8); MONOCYTES % 8.7 % (4.4-11.3); NEUTROPHILS # (AUTO) 3.5 (2.1-6.9); NEUTROPHILS % 63.8 % (38.7-80.0); PLATELET COUNT 181 x10e3/uL (140-360); RED BLOOD COUNT 4.11 x10e6/uL (4.3-5.7); RED CELL DISTRIBUTION WIDTH 11.9 % (11.7-14.4); WHITE BLOOD COUNT 5.52 x10e3/uL (4.8-10.8)
[2024-04-23 06:18] LABS: CALCIUM 9.5 mg/dL (8.4-10.2); CREATININE, SERUM 1.22 mg/dL (0.72-1.25)
[2024-04-23 06:28] LABS: ANION GAP 12.2 mmol/L (8-16); POTASSIUM 4.2 mmol/L (3.5-5.1)
[2024-04-23] MEDS: PANTOPRAZOLE SOD 40 MG TABEC PO SCH (09:29)
[2024-04-23] MEDS: LISINOPRIL 10 MG TAB PO SCH (09:29)
[2024-04-23] MEDS ORDERED: KETOROLAC TROMETHAMINE 30 MG/ML VIAL IM PRN (16:00)
[2024-04-23] MEDS: TAMSULOSIN HCL 0.4 MG CAP PO SCH (16:30)
[2024-04-23] MEDS: KETOROLAC TROMETHAMINE 30 MG/ML VIAL IV PRN (16:32)
[2024-04-23] MEDS: Morphine 4mg INJECTION 4 MG/ML INJ IV PRN (17:46)
[2024-04-24] VITALS (12 sets, daily range): BP systolic 112–165; BP diastolic 61–88; PULSE 73–108; RESP 17–20; TEMP 98.3–101.8; O2SAT 94–100
[2024-04-24] MEDS: CEFTRIAXONE 2 GM in SODIUM CHLORIDE 0.9% 100 ML IV SCH (16:51)
[2024-04-25] VITALS (7 sets, daily range): BP systolic 111–166; BP diastolic 63–98; PULSE 75–93; RESP 18–19; TEMP 97.9–98.6; O2SAT 97–100
[2024-04-25 05:58] LABS: BASOPHILS % 0.5 % (0.0-1.0); EOSINOPHILS # (AUTO) 0.2 (0.0-0.4); EOSINOPHILS % 5.1 % (0.0-6.0); HEMATOCRIT 34.9 % (38.2-49.6); HEMOGLOBIN 11.5 g/dL (14.0-18.0); LYMPHOCYTES % 24.9 % (18.0-39.1); MEAN CORPUSCULAR HEMOGLOBIN 31.9 pg (28-32); MEAN CORPUSCULAR VOLUME 96.9 fL (81-99); MONOCYTES # (AUTO) 0.5 (0.2-0.8); MONOCYTES % 11.1 % (4.4-11.3); NEUTROPHILS # (AUTO) 2.4 (2.1-6.9); NEUTROPHILS % 58.2 % (38.7-80.0); PLATELET COUNT 146 x10e3/uL (140-360); RED CELL DISTRIBUTION WIDTH 11.9 % (11.7-14.4); WHITE BLOOD COUNT 4.13 x10e3/uL (4.8-10.8)
[2024-04-25 06:32] LABS: ALBUMIN 2.9 g/dL (3.5-5.0); ANION GAP 11.2 mmol/L (8-16); BILIRUBIN,TOTAL 0.5 mg/dL (0.2-1.2); CALCIUM 8.4 mg/dL (8.4-10.2); CREATININE, SERUM 1.22 mg/dL (0.72-1.25); POTASSIUM 4.2 mmol/L (3.5-5.1); TOTAL PROTEIN 5.9 g/dL (6.5-8.1)
[2024-04-25] MEDS: SENNOSIDES 8.6 MG TAB PO SCH (10:58)
[2024-04-25] MEDS: POLYETHYLENE GLYCOL 3350 17 GM PACK PO SCH (10:58)
[2024-04-26] VITALS (7 sets, daily range): BP systolic 110–156; BP diastolic 63–84; PULSE 64–95; RESP 14–19; TEMP 97.8–98.5; O2SAT 97–99
[2024-04-27] VITALS (9 sets, daily range): BP systolic 127–175; BP diastolic 75–85; PULSE 63–89; RESP 17–19; TEMP 97.7–98.5; O2SAT 95–98
[2024-04-28 00:47] VITALS: BP 145/88; PULSE 84; RESP 18; TEMP 98; O2SAT 97
[2024-04-28 04:00] VITALS: BP 142/78; PULSE 68; RESP 17; TEMP 97.7; O2SAT 96
[2024-04-28 08:40] VITALS: BP 161/98; PULSE 88; RESP 18; TEMP 98.1; O2SAT 97
[2024-04-28 08:56] VITALS: BP 163/91; PULSE 88; RESP 18; TEMP 98.1; O2SAT 97
[2024-04-28] MEDS ORDERED: IOPAMIDOL 610MG/1ML 300 MG/ML VIAL IV ONE (09:31)
[2024-04-28 12:00] VITALS: BP 151/81; PULSE 77; RESP 16; TEMP 98.4; O2SAT 96
[2024-04-28] MEDS ORDERED: FENTANYL CITRATE/PF 100MCG/2 ML INJ ONE (12:50)
[2024-04-28] MEDS ORDERED: MIDAZOLAM HCL 2 MG/2 ML VIAL ONE (12:50)
[2024-04-28] MEDS ORDERED: ONDANSETRON HCL INJ 2MG/ML 2ML 2 MG/ML VIAL ONE (12:53)
[2024-04-28] MEDS ORDERED: LIDOCAINE HCL 2% LOCAL INJ 5 ML SDV VIAL INJ ONE (12:53)
[2024-04-28] MEDS ORDERED: PROPOFOL IV EMULSION 10 MG/ML 20 ML VIAL ONE (12:53)
[2024-04-28] MEDS ORDERED: SEVOFLURANE INHAL SOLN 250 ML PEN BTL ONE (12:53)
[2024-04-28] MEDS ORDERED: ACETAMINOPHEN 1000 MG/100 ML IV ONE (12:53)
[2024-04-28] MEDS ORDERED: DEXAMETHASONE SOD PHOS INJ 4 MG/ML SDV ONE (12:53)
[2024-04-28] MEDS: LABETALOL HCL 5 MG/ML 20ML VIAL IV ONE (15:35)
[2024-04-28] MEDS: FENTANYL CITRATE/PF 100MCG/2 ML INJ ONE (15:42)
[2024-04-28] MEDS: HYDROCODONE/APAP 5MG-325MG TAB ONE (15:43)
[2024-04-28] MEDS: KETOROLAC TROMETHAMINE 30 MG/ML VIAL ONE (16:15)
[2024-04-28 20:00] VITALS: BP 150/78; PULSE 86; RESP 18; RESP 19; TEMP 98.1; O2SAT 96; O2SAT 97
[2024-04-28] MEDS: HYDROCODONE/APAP 5MG-325MG TAB PO PRN (20:58)
[2024-04-29] VITALS (7 sets, daily range): BP systolic 147–169; BP diastolic 78–94; PULSE 74–100; RESP 18–21; TEMP 98.1–99.1; O2SAT 96–100
[2024-04-29 06:07] LABS: BASOPHILS % 0.1 % (0.0-1.0); HEMATOCRIT 36.7 % (38.2-49.6); HEMOGLOBIN 12.1 g/dL (14.0-18.0); LYMPHOCYTES # (AUTO) 0.6 (1.0-3.2); LYMPHOCYTES % 6.8 % (18.0-39.1); MEAN CORPUSCULAR HEMOGLOBIN 31.7 pg (28-32); MEAN CORPUSCULAR VOLUME 96.1 fL (81-99); MONOCYTES # (AUTO) 0.3 (0.2-0.8); MONOCYTES % 3.8 % (4.4-11.3); NEUTROPHILS % 88.7 % (38.7-80.0); PLATELET COUNT 241 x10e3/uL (140-360); RED BLOOD COUNT 3.82 x10e6/uL (4.3-5.7); RED CELL DISTRIBUTION WIDTH 11.7 % (11.7-14.4); WHITE BLOOD COUNT 9.02 x10e3/uL (4.8-10.8)
[2024-04-29 06:43] LABS: ALBUMIN 3.4 g/dL (3.5-5.0); ANION GAP 12.8 mmol/L (8-16); BILIRUBIN,TOTAL 0.3 mg/dL (0.2-1.2); CALCIUM 9.7 mg/dL (8.4-10.2); CREATININE, SERUM 1.9 mg/dL (0.72-1.25); POTASSIUM 4.8 mmol/L (3.5-5.1); TOTAL PROTEIN 6.8 g/dL (6.5-8.1)
[2024-04-29] MEDS: KETOROLAC TROMETHAMINE 30 MG/ML VIAL IV STA (08:40)
[2024-04-29] MEDS ORDERED: ACETAMINOPHEN 325 MG TAB PO PRN (09:15)
[2024-04-29] MEDS: SODIUM CHLORIDE 0.9% 500ML 500 ML IV ONE (09:31)
[2024-04-29 15:44] LABS: ANION GAP 13.5 mmol/L (8-16); CALCIUM 9.6 mg/dL (8.4-10.2); CREATININE, SERUM 1.39 mg/dL (0.72-1.25); POTASSIUM 4.5 mmol/L (3.5-5.1)
[2024-04-29] MEDS: Morphine 2mg Syringe 2 MG/ML SYR IV PRN (20:21)
[2024-04-30] VITALS: BP 152/84; PULSE 80; RESP 20; TEMP 97.8; O2SAT 97
[2024-04-30] MEDS: ACETAMINOPHEN 1000 MG/100 ML IV SCH (00:01)
[2024-04-30 04:00] VITALS: BP 128/77; PULSE 70; RESP 20; TEMP 97.9; O2SAT 97
[2024-04-30 05:49] LABS: BASOPHILS % 0.5 % (0.0-1.0); EOSINOPHILS # (AUTO) 0.1 (0.0-0.4); EOSINOPHILS % 1.8 % (0.0-6.0); HEMATOCRIT 36.2 % (38.2-49.6); HEMOGLOBIN 11.5 g/dL (14.0-18.0); LYMPHOCYTES # (AUTO) 1.6 (1.0-3.2); LYMPHOCYTES % 21.4 % (18.0-39.1); MEAN CORPUSCULAR HEMOGLOBIN 31.3 pg (28-32); MEAN CORPUSCULAR HGB CONC 31.8 g/dL (31-35); MEAN CORPUSCULAR VOLUME 98.6 fL (81-99); MONOCYTES # (AUTO) 0.4 (0.2-0.8); MONOCYTES % 5.3 % (4.4-11.3); NEUTROPHILS # (AUTO) 5.1 (2.1-6.9); NEUTROPHILS % 70.6 % (38.7-80.0); PLATELET COUNT 227 x10e3/uL (140-360); RED BLOOD COUNT 3.67 x10e6/uL (4.3-5.7); RED CELL DISTRIBUTION WIDTH 12.1 % (11.7-14.4); WHITE BLOOD COUNT 7.29 x10e3/uL (4.8-10.8)
[2024-04-30 06:32] LABS: ALBUMIN 3.4 g/dL (3.5-5.0); ALBUMIN/GLOBULIN RATIO 1.2 (0.8-2.0); ANION GAP 12.5 mmol/L (8-16); BILIRUBIN,TOTAL 0.4 mg/dL (0.2-1.2); CREATININE, SERUM 1.13 mg/dL (0.72-1.25); POTASSIUM 4.5 mmol/L (3.5-5.1); TOTAL PROTEIN 6.3 g/dL (6.5-8.1)
[2024-04-30 07:56] VITALS: BP 129/65; PULSE 70; RESP 21; TEMP 97.6; O2SAT 98
[2024-04-30 09:52] VITALS: BP 129/65; PULSE 70; RESP 21; TEMP 97.6; O2SAT 98
[2024-04-30 11:26] VITALS: BP 130/77; PULSE 73; RESP 16; TEMP 98.1; O2SAT 97
[2024-04-30 15:59] VITALS: BP 165/88; PULSE 76; RESP 19; TEMP 98.1; O2SAT 98
[2024-04-30] MEDS ORDERED: CEPHALEXIN500 M1 PO (16:16)
== END 2024-04-30 17:25 | disposition home or self-care (01) | DRG 698 ==
LOC: ER 14:22 → ERHOLD 14:43 → MED/SURG3 17:14
PROVIDERS: ADMIT Internal Medicine; ATTEND Internal Medicine
PROC: 3E0333Z Introduction of Anti-inflammatory into Peripheral Vein, Percutaneous Approach (ICD-10-PCS; principal; 2024-04-22)
PROC: 0TP98DZ Removal of Intraluminal Device from Ureter, Via Natural or Artificial Opening Endoscopic (ICD-10-PCS; 2024-04-28)
PROC: 0TC68ZZ Extirpation of Matter from Right Ureter, Via Natural or Artificial Opening Endoscopic (ICD-10-PCS; 2024-04-28)
PROC: BT131ZZ Fluoroscopy of Bilateral Kidneys using Low Osmolar Contrast (ICD-10-PCS; 2024-04-28)
PROC: BT161ZZ Fluoroscopy of Right Ureter using Low Osmolar Contrast (ICD-10-PCS; 2024-04-28)
PROC: BT171ZZ Fluoroscopy of Left Ureter using Low Osmolar Contrast (ICD-10-PCS; 2024-04-28)
PROC: 0TP98DZ Removal of Intraluminal Device from Ureter, Via Natural or Artificial Opening Endoscopic (ICD-10-PCS; 2024-04-28 13:48)
DX: T83.592A Infection and inflammatory reaction due to indwelling ureteral stent, initial encounter (principal); A41.9 Sepsis, unspecified organism; N17.9 Acute kidney failure, unspecified; N39.0 Urinary tract infection, site not specified; K76.0 Fatty (change of) liver, not elsewhere classified; R53.81 Other malaise; K21.9 Gastro-esophageal reflux disease without esophagitis; I10 Essential (primary) hypertension; R00.0 Tachycardia, unspecified; D64.9 Anemia, unspecified; R31.9 Hematuria, unspecified; Z11.52 Encounter for screening for COVID-19; K59.00 Constipation, unspecified; E66.3 Overweight; Z68.24 Body mass index [BMI] 24.0-24.9, adult; Y83.1 Surgical operation with implant of artificial internal device as the cause of abnormal reaction of the patient, or of later complication, without mention of misadventure at the time of the procedure; Z96.0 Presence of urogenital implants; Z87.442 Personal history of urinary calculi; Z88.1 Allergy status to other antibiotic agents; Z88.2 Allergy status to sulfonamides; Z88.8 Allergy status to other drugs, medicaments and biological substances; Z87.891 Personal history of nicotine dependence; Z53.09 Procedure and treatment not carried out because of other contraindication; Z59.6 Low income
CPT/HCPCS: 36415; 71045; 74176; 74420; 76870; 80048; 80053; 81001; 83605; 83690; 83735; 85025; 85610; 85730; 86140; 86850; 86900; 87040; 87086; 88300; 93005; 93976; 94799; 99284; C1769; J0696; J1100; J1170; J1885; J2001; J2250; J2270; J2405; J2543; J7030; J7040; J7050; U0002

== ENCOUNTER → 2024-12-11 | Day surgery (SDC) | payer OTHER ==
[~2024-12-11] MED LIST changes: +CEPHALEXIN500 M1 PO; +FENTANYL CITRATE/PF 100MCG/2 ML INJ ONE; +GLUCAGON FOR INJ 1 MG VIAL ONE; +HYOSCYAMINE SULFATE 0.5 MG/ML INJ ONE; +LIDOCAINE HCL 2% LOCAL INJ 5 ML SDV VIAL INJ ONE; +METOCLOPRAMIDE HCL 10 MG/2ML VIAL ONE; +PROPOFOL IV EMULSION 10 MG/ML 20 ML VIAL ONE; +PROPOFOL IV EMULSION 50 ML IV ONE
[2024-12-11] MEDS: LACTATED RINGER'S 1,000 ML ONE (14:24)
[2024-12-11 16:26] VITALS: TEMP 98
[2024-12-11 16:55] VITALS: BP 151/99; PULSE 79; RESP 16; O2SAT 98
== END | disposition home or self-care (01) ==
LOC: OR 13:44
PROVIDERS: ATTEND Internal Medicine Gastroenterology
DX: Z12.11 Encounter for screening for malignant neoplasm of colon (principal); D12.3 Benign neoplasm of transverse colon; K31.7 Polyp of stomach and duodenum; K29.50 Unspecified chronic gastritis without bleeding; K31.1 Adult hypertrophic pyloric stenosis; K31.89 Other diseases of stomach and duodenum; K20.90 Esophagitis, unspecified without bleeding; K57.30 Diverticulosis of large intestine without perforation or abscess without bleeding; K44.9 Diaphragmatic hernia without obstruction or gangrene; K21.9 Gastro-esophageal reflux disease without esophagitis; K64.8 Other hemorrhoids; Z71.3 Dietary counseling and surveillance; G47.33 Obstructive sleep apnea (adult) (pediatric); I10 Essential (primary) hypertension; Z71.89 Other specified counseling; E78.5 Hyperlipidemia, unspecified; N40.0 Benign prostatic hyperplasia without lower urinary tract symptoms; J44.9 Chronic obstructive pulmonary disease, unspecified; E66.01 Morbid (severe) obesity due to excess calories; F17.210 Nicotine dependence, cigarettes, uncomplicated; Z88.0 Allergy status to penicillin; Z88.2 Allergy status to sulfonamides; Z88.8 Allergy status to other drugs, medicaments and biological substances; Z01.810 Encounter for preprocedural cardiovascular examination; Z79.899 Other long term (current) drug therapy; Z68.36 Body mass index [BMI] 36.0-36.9, adult; Z86.19 Personal history of other infectious and parasitic diseases
CPT/HCPCS: 43239; 43245; 43251; 45385; 93005; J1610; J1980; J2003; J2470; J2704 ×2; J2765; J3010; J7121